=== PATIENT | male | born 1975 | race Caucasian/White ===

== ENCOUNTER 2016-03-01 20:01 | Emergency (ER) | payer BC, OTHER ==
[2016-03-01 20:15] VITALS: BP 135/89
[2016-03-01] MEDS ORDERED: BSS OPTH.SOL* BTL ONE (20:21)
[2016-03-01] MEDS ORDERED: Fluorescein Sodium TOPICAL* 1 MG TEST ONE (20:21)
[2016-03-01] MEDS ORDERED: Proparacaine 0.5% OPHTH.SOL* 15 ML BTL ONE (20:21)
--- NOTE | 2016-03-01 21:18 | UC ---
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 IRRIGATED EYE, DID NOT NOTICE ANY FOREIGN BODY, BUT IRRIATION CONTINUES. PATIENT WAS WEARING CONTACT LENSES AT THE TIME - History of Current Complaint Chief Complaint: UCEye Stated Complaint: LEFT EYE INJURY Time Seen by Provider: 03/01/16 20:30 Hx Obtained From: Patient Onset/Duration: Sudden Onset, Lasting Hours, Still Present Pain Intensity: 7 Pain Scale Used: 0-10 Numeric Location of Injury: Conjunctiva Character: Dull Aggravating Factor(s): Light Alleviating Factor(s): Darkness Associated Signs And Symptoms: Positive: Photophobia, Drainage (Clear). Negative: Drainage (Purulent), Vision Impairment Bilateral, Vision Impairment Right, Vision Impairment Left, Fever, Swelling - Risk Factors Penetrating Injury Risk Factor: Grinding Globe Rupture Risk Factors: Negative Acute Glaucoma Risk Factors: Negative Optic Artery Occlusion Risk Factors: Negative - Allergies/Home Medications Allergies/Adverse Reactions: Allergies Allergy/AdvReac Type Severity Reaction Status Date / Time hay fever Allergy Congestion Uncoded 03/01/16 20:15 Home Medications: Home Medications Acetaminophen [Extra Strength Acetaminop] 1,000 mg PO SEE INSTRUCTIONS 03/01/16 [History Confirmed 03/01/16] Restless Leg Syndrome Med 1 mg PO BEDTIME 03/01/16 [History Confirmed 03/01/16] Rivaroxaban TAB(*) [Xarelto 15 mg(*)] 15 mg PO DAILY 03/01/16 [History Confirmed 03/01/16] PMH/Surg Hx/FS Hx/Imm Hx Previously Healthy: Yes Endocrine History Of: Denies: Diabetes Cardiovascular History Of: Denies: Cardiac Disorders, Hypertension, Congestive Heart Failure Respiratory History Of: Denies: Asthma GI/ History Of: Denies: Renal Disease - Surgical History Surgical History: Yes Surgery Procedure, Year, and Place: sleep apnea surgery - Family History Known Family History: Negative: Diabetes - Social History Occupation: Employed Full-time Lives: With Family Alcohol Use: Occasionally Alcohol Amount: 2 beers Substance Use Type: None Smoking Status (MU): Former Smoker When Did the Patient Quit Smoking/Using Tobacco: 1 YR AGO Review of Systems Constitutional: Negative Skin: Negative Eyes: Drainage, Eye Redness, Photophobia ENT: Negative Respiratory: Negative Cardiovascular: Negative Gastrointestinal: Negative Genitourinary: Negative Motor: Negative Neurovascular: Negative Musculoskeletal: Negative Neurological: Negative Psychological: Negative All Other Systems Reviewed And Are Negative: Yes Physical Exam Triage Information Reviewed: Yes Appearance: Well-Appearing, No Pain Distress, Well-Nourished Vital Signs: Initial Vital Signs Temp 98.3 F 03/01/16 20:09 Pulse 62 03/01/16 20:09 Resp 16 03/01/16 20:09 BP 135/89 03/01/16 20:09 Pulse Ox 97 03/01/16 20:09 Vital Signs Reviewed: Yes Eyes: Positive: Conjunctiva Clear, Other: - FLUORESCEIN UPTAKE LEFT EYE 3 OCLOCK TO 7OCLOCK ENT Exam: Normal ENT: Positive: Normal ENT inspection, Hearing grossly normal, Pharynx normal, TMs normal Dental Exam: Normal Neck exam: Normal Neck: Positive: Supple, Nontender, No Lymphadenopathy Respiratory Exam: Normal Respiratory: Positive: Chest non-tender, Lungs clear, Normal breath sounds, No respiratory distress Cardiovascular Exam: Normal Cardiovascular: Positive: RRR, No Murmur, Pulses Normal Abdominal Exam: Normal Abdomen Description: Positive: Nontender, No Organomegaly Musculoskeletal Exam: Normal Musculoskeletal: Positive: Strength Intact, ROM Intact Neurological Exam: Normal Psychological Exam: Normal Psychological: Positive: Normal Response To Family Skin Exam: Normal Eye Complaint Course/Dx - Differential Dx/Diagnosis Differential Diagnosis/HQI/PQRI: Conjunctivitis, Corneal Abrasion, Foreign Body Provider Diagnoses: LEFT EYE CORNEAL ABRASION Discharge - Discharge Plan Condition: Stable Disposition: HOME Prescriptions: Polymyx/Trimethoprim OPTH* [Polytrim OPHTH*] 1 drop LEFT EYE Q3H #1 btl Patient Education Materials: Corneal Abrasion (ED) Referrals: Lisa Orr MD [Medical Doctor] - Javi Ross MD [Medical Doctor] -
== END 2016-03-01 21:06 | disposition home or self-care (01) ==
LOC: UCCORT 20:01
DX: S05.02XA Injury of conjunctiva and corneal abrasion without foreign body, left eye, initial encounter (principal); X58.XXXA Exposure to other specified factors, initial encounter; Y93.89 Activity, other specified; Y92.9 Unspecified place or not applicable; Y99.0 Civilian activity done for income or pay; Z87.891 Personal history of nicotine dependence
CPT/HCPCS: 99212; A9270-GY; G0463